=== PATIENT | male | born 1970 | race Caucasian/White ===

== ENCOUNTER → 2018-07-16 | Outpatient (CLI) | payer OTHER ==
--- NOTE | 2018-07-16 14:51 | PCVCIMAG ---
APPROVED REPORT Study performed: 07/16/2018 13:14:56 EXAM: Comprehensive 2D, Doppler, and color-flow Echocardiogram Patient Location: Echo lab Status: routine BSA: 2.08 HR: 62 bpmBP: 120/84 mmHg Rhythm: NSR Other Information Study Quality: Adequate Risk Factors: Cardiac Risk Factors: HTN Indications Abnormal ECG Chest Pain fam hx cad 2D Dimensions IVSd: 8.74 (7-11mm) LVDd: 40.67 mm PWd: 9.16 (7-11mm)Ascending Ao: 29.83 (22-36mm) LVDs: 27.01 (25-40mm) Left Atrium: 33.20 (27-40mm) Aortic Root: 29.56 mm LV Single Plane 4CH: 49.40 % LV Single Plane 2CH: 52.26 % Biplane EF: 51.2 % Volumes Left Atrial Volume (Systole) Single Plane 4CH: 52.18 mLSingle Plane 2CH: 51.83 mL LA ESV Index: 25.00 mL/m2 Aortic Valve AoV Peak Drake.: 1.00 m/s AO Peak Gr.: 4.01 mmHg Mitral Valve E/A Ratio: 1.5 MV Decel. Time: 221.55 ms MV E Max Drake.: 0.51 m/s MV A Drake.: 0.34 m/s IVRT: 103.81 ms Pulmonary Valve PV Peak Drake.: 0.84 m/sPV Peak Gr.: 2.84 mmHg Pulmonary Vein P Vein S: 0.25 m/sP Vein A: 0.29 m/s P Vein D: 0.42 m/sP Vein A Dur.: 110.7 msec P Vein S/D Ratio: 0.60 Tricuspid Valve TR Peak Drake.: 2.30 m/s TR Peak Gr.: 21.25 mmHg TV Vmax: 0.54 m/s Left Ventricle The left ventricle is normal size. There is normal LV segmental wall motion. There is normal left ventricular wall thickness. Left ventricular systolic function is normal. The left ventricular ejection fraction is within the normal range. LVEF is 50%. The left ventricular diastolic function is normal. Right Ventricle The right ventricle is normal size. The right ventricular systolic function is normal. Atria The left atrium size is normal. The right atrium size is normal. Aortic Valve The aortic valve is normal in structure. Mild aortic regurgitation. There is no aortic valvular stenosis. Mitral Valve The mitral valve is normal in structure. Mild mitral regurgitation. No evidence of mitral valve stenosis. Tricuspid Valve The tricuspid valve is normal in structure. Trace tricuspid regurgitation with PAP of 28 mmHg. Pulmonic Valve The pulmonary valve is normal in structure. Mild pulmonic regurgitation. Great Vessels The aortic root is normal in size. IVC is normal in size and collapses >50% with inspiration. Pericardium There is no pericardial effusion. There is no pleural effusion. <Conclusion> The left ventricle is normal size. There is normal left ventricular wall thickness. Left ventricular systolic function is normal. The right ventricle is normal size. The left atrium size is normal. The right atrium size is normal. Mild aortic regurgitation. Mild mitral regurgitation. Trace tricuspid regurgitation with PAP of 28 mmHg.
--- NOTE | 2018-07-16 14:59 | PCVCIMAG ---
APPROVED REPORT Study performed: 07/16/2018 14:09:35 Exam: Stress Echocardiogram Indication: Chest pain, fam hx CAD, abn ekg Patient Location: Echo lab Stress Nurse: Noreen Sosa RN Status: routine Ht: 6 ft 1 in HR: 78 bpm BP: 120/84 mmHg Rhythm: NSR Procedure The patient underwent an Exercise Stress Test using the Fabricio Protocol. Blood pressure, heart rate, and EKG were monitored. An Echocardiogram was performed by software technician in four stages in quad fashion. At peak stress, four selected images were obtained and placed side by side with resting images for comparison. Stress Test Details Stress Test: Exercise stress testing was performed using a Fabricio protocol. HR Resting HR: 78 bpmMax Heart Rate (APMHR): 175 bpm Max HR Achieved: 193 bpmTarget HR (85% APMHR): 148 bpm % of APMHR: 110 Recovery HR: 129 bpm HR response to stress: Normal HR response to stress BP Resting BP: 120/84 mmHg Max BP: 146/82 mmHg Recovery BP: 136/64 mmHg BP response to stress: Normal blood pressure response to stress. ECG Resting ECG: Sinus Rhythm Stress ECG: Sinus Rhythm ST Change: Non-ischemic Arrhythmia: None Recovery ECG: Sinus Rhythm Recovery ST Change: inferior ST abnormality Recovery Arrhythmia: None Clinical Reason for Termination: Maximal effort Stress Symptoms: Dyspnea Exercise duration: 12 min 57 sec Highest Stage Achieved: Stage 5: 5.0 mph at 18% grade. Exercise capacity: 16.9 METs Overall Exercise Capacity for Age: Excellent Scale: Active Angina Score: None Pre-Stress Echo The resting Echocardiogram showed normal left ventricular contractility with an estimated Ejection Fraction of about 50-55%. Normal wall motion in all segments on baseline images. Post-Stress Echo The stress Echocardiogram showed normal left ventricular contractility with an estimated Ejection Fraction of about 60-65%. Normal augmentation of wall motion in all segments on post stress images. Clinical No clinical evidence for ischemia. Conclusion Clinical Response: Non-ischemic Exercise Capacity: Superior Stress ECG Response: Non-ischemic Stress Echo Images: Non-ischemic The left ventricle is normal in size and wall thickness in both the rest and stress images. Other Information Study Quality: Adequate <Conclusion> The left ventricle is normal in size and wall thickness in both the rest and stress images.
== END | disposition home or self-care (01) ==
LOC: PCVCIMAG 13:30
PROVIDERS: ATTEND Internal Medicine Cardiovascular Disease
DX: I08.0 Rheumatic disorders of both mitral and aortic valves (principal); R94.31 Abnormal electrocardiogram [ECG] [EKG]
CPT/HCPCS: 93306; 93351